=== PATIENT | female | born 1960 | race Two or more races ===

== ENCOUNTER 2022-11-07 01:16 | Emergency (ER) | payer MEDICAID ==
[~2022-11-07] VITALS: Ht 162.6 cm; Wt 99.8 kg
--- NOTE | 2022-11-07 02:14 | NUR ---
Patient [id number], able to express her concerns. States she was cooking when she accidentally cut her left index finger. MD at bedside discussing plan of care, patient verbalized agreement. All safety precautions taken.
[2022-11-07] MEDS ORDERED: ACETAMINOPHEN 325 MG TABLET PO ONE (02:30)
[2022-11-07] MEDS ORDERED: TDAP [DIPH/PERTUSSIS/TET] 0.5 ML VIAL IM ONE ×2 (02:30→02:31)
[2022-11-07] MEDS ORDERED: ACETAMINOPHEN ES 500 MG TABLET ONE (02:31)
[2022-11-07] MEDS ORDERED: CEPH500T PO (02:31)
[2022-11-07] MEDS ORDERED: TYL2T PO (02:31)
[2022-11-07 02:49] VITALS: BP 128/109
== END 2022-11-07 02:49 | disposition home or self-care (01) ==
LOC: ER 01:26
DX: S61.211A Laceration without foreign body of left index finger without damage to nail, initial encounter (principal); I10 Essential (primary) hypertension; E11.9 Type 2 diabetes mellitus without complications; W26.9XXA Contact with unspecified sharp object(s), initial encounter; Y93.89 Activity, other specified; Y92.89 Other specified places as the place of occurrence of the external cause; Y99.8 Other external cause status
CPT/HCPCS: 90715